=== PATIENT | male | born 1955 | race Caucasian/White ===

== ENCOUNTER → 2021-12-01 | Outpatient (CLI) | payer OTHER ==
[~2021-12-01] MED LIST: ADALAT CC60 MG PO; ASPIRIN 32325 MG/TAB PO; ASPIRIN 81M81 MG/TA2 PO; ATIVAN 1MG T1 MG/TAB PO; CARDENE 20MG CA20 M1 PO; CRESTOR10 MG PO; CRESTOR20 MG PO; GLUCOPHAGE850 MG/TAB PO; HUMULIN R U-100 U/ML IJ; LANTUS100 U/ML; LANTUS100 U/ML SC; LOPRESSOR 225 MG/TAB PO; METFORMIN850 MG PO; NITROSTAT0.4 MG/TAB SL; NOVOLIN 70/30 710 ML SQ; NOVOLIN N100 U/ML SC; NOVOLIN R100 U/ML SC; PLAVIX 75MG TAB75 MG PO; PRIL40 PO; PROGRAF1 MG PO; ZANTAC 150MG T150 MG PO; ZESTRIL 10MG10 MG PO
== END ==
LOC: MHCPAIN 13:46
DX: M47.816 Spondylosis without myelopathy or radiculopathy, lumbar region (principal); M53.3 Sacrococcygeal disorders, not elsewhere classified; M54.16 Radiculopathy, lumbar region; M48.062 Spinal stenosis, lumbar region with neurogenic claudication
CPT/HCPCS: G0463

== ENCOUNTER → 2021-12-25 | Outpatient (CLI) | payer OTHER | LOC: MHCPAIN 11:31 | DX: M47.817 Spondylosis without myelopathy or radiculopathy, lumbosacral region (principal); M54.16 Radiculopathy, lumbar region | CPT/HCPCS: J1100; Q9967 ==

== ENCOUNTER → 2022-01-13 | Outpatient (CLI) | payer OTHER | LOC: MHCPAIN 14:33 | DX: M47.816 Spondylosis without myelopathy or radiculopathy, lumbar region (principal); M54.50 Low back pain, unspecified; M53.3 Sacrococcygeal disorders, not elsewhere classified; M48.062 Spinal stenosis, lumbar region with neurogenic claudication | CPT/HCPCS: G0463 ==